=== PATIENT | female | born 1965 | race Caucasian/White ===

== ENCOUNTER 2018-03-14 10:02 | Outpatient (CLI) | payer OTHER | END 2018-03-14 10:03 | disposition home or self-care (01) | LOC: BICRAD 10:02 | PROVIDERS: ATTEND Family Medicine | DX: M19.042 Primary osteoarthritis, left hand (principal) ==

== ENCOUNTER 2019-03-24 13:31 | Outpatient (CLI) | payer OTHER ==
--- NOTE | 2019-03-26 13:48 | ULT ---
LOWER EXTREMITY ARTERIAL EVALUATION The patient has pain in her left hip and leg. Examination of the Doppler waveforms in the right and left lower extremities reveal normal waveforms bilaterally. Ankle-arm index is normal bilaterally at greater than 1.1 and toe-brachial index is norm al bilaterally. ASSESSMENT: This is a normal resting arterial study of the lower extremities and would be inconsistent with any s ignificant lower extremity vascular symptoms.
== END 2019-03-24 13:32 | disposition home or self-care (01) ==
LOC: ULT 13:31
PROVIDERS: ATTEND Family Medicine
DX: M79.605 Pain in left leg (principal)
CPT/HCPCS: 93922